=== PATIENT | female | born 1960 | race Caucasian/White ===

== ENCOUNTER 2021-04-02 18:51 | Emergency (ER) | payer OTHER ==
[~2021-04-02] VITALS: Ht 172.7 cm; Wt 136.1 kg
[~2021-04-02 18:51] MED LIST: CEPHALEXIN 500500 M2 PO; PROZAC 10 MG CA10 M1; ULTRAM 50MG TAB50 MG PO
[2021-04-02] MEDS ORDERED: MEDROLDOSEPACK PO (19:42)
[2021-04-02] MEDS ORDERED: PROAIR HFA8.5 GM INH (19:42)
[2021-04-02] MEDS ORDERED: ZPAK PO (19:42)
[2021-04-02 20:00] VITALS: BP 167/70
== END 2021-04-02 20:00 | disposition home or self-care (01) ==
LOC: M.ERS 18:51
DX: J22 Unspecified acute lower respiratory infection (principal); Z90.89 Acquired absence of other organs

== ENCOUNTER 2021-09-24 18:10 | Inpatient (IN) | payer OTHER ==
[~2021-09-24] VITALS: Ht 172.7 cm; Wt 142.9 kg
[~2021-09-24 18:10] MED LIST changes: +MEDROLDOSEPACK PO; +PROAIR HFA8.5 GM INH; +ZPAK PO
[2021-09-24 18:19] VITALS: BP 145/87
[2021-09-24 18:51] LABS: ABSOLUTE LYMPHOCYTES 0.5 thou/uL (0.8-5.3); ABSOLUTE MONOCYTES 0.8 thou/uL (0.0-1.2); ABSOLUTE NEUTROPHILS 5.6 thou/uL (1.6-8.1); BASOPHILS 0.4 %; EOSINOPHILS 0.2 %; HEMATOCRIT 49.1 % (37.0-47.0); LYMPHOCYTES 7.9 %; MCH 30.4 pg (26.0-34.0); MCHC 34.6 g/dL (28.0-37.0); MONOCYTES 11.7 %; MPV 8.4 fl. (7.2-11.1); NUCLEATED RBCS 0 /100WBC; PLATELET COUNT* 203 thou/uL (150-400); POLYS 79.8 %; RBC 5.58 mil/uL (4.20-5.00)
[2021-09-24 18:58] LABS: CALCIUM 8.6 mg/dL (8.5-10.1); CREATININE 1.3 mg/dL (0.6-1.3)
[2021-09-24 19:00] LABS: APTT 27.6 Seconds (25.0-31.3); INR 1.1; POTASSIUM 3.9 mmol/L (3.5-5.1); PROTIME 11.1 Seconds (9.20-11.50)
[2021-09-24 19:09] LABS: ALBUMIN 3.1 g/dL (3.4-5.0); TOTAL BILIRUBIN 2.1 mg/dL (<0.1-1.0); TOTAL PROTEIN 7.7 g/dL (6.4-8.2)
[2021-09-24 19:42] LABS: BE 0.2 mmol/L (-2 to +3); PCO2 30.2 mmHg (35.0-45.0); pH 7.486 (7.340-7.450)
[2021-09-24 20:21] LABS: INFLUENZA A ANTIGEN Negative (Negative); INFLUENZA B ANTIGEN Negative (Negative)
[2021-09-24 23:46] VITALS: BP 135/65
[2021-09-25 03:45] VITALS: BP 102/66
[2021-09-25 07:45] VITALS: BP 115/91
--- NOTE | 2021-09-25 11:16 | EKG ---
[place] [address] ELECTROCARDIOGRAM REPORT Name: JESSIKA CHUNG Room: [place] [address] ADM IN [facility]#: [id number] Admission: 09/24/21 Attend Phys: Vida Barker Discharge: Date of : 56 Date of Service: 09/24/21 1839 Report #: [id number] THIS REPORT FOR: //name// [facility] ED Test Date: 2021-09-24 Test Time: 18:39:33 Pat Name: JESSIKA WILLOUGHBYVALENTINA Department: Room: [facility] Gender: F Supervisor Finish End: ELKIN : 1960 Requested By: Perry Roach Order Number: [id number] MD: Lux Bush Measurements Intervals Weikert Rate: 96 P: -81 GA: 122 QRS: -20 QRSD: 101 T: -27 QT: 455 QTc: 576 Interpretive Statements Sinus or ectopic atrial rhythm nonspecific t wave changes Prolonged QT interval Baseline wander in lead(s) II,III,aVF,V1,V2 Compared to ECG 03/09/2012 13:10:02 Ectopic atrial rhythm now present Prolonged QT interval now present Electronically Signed On 09-25-2021 11:16:46 [employer] by Lux Bush [email or web address] <ELECTRONICALLY SIGNED> By: Lux Bush MD, [facility] 09/25/21 [phone] Lux Bush MD, [facility] /EPI
[2021-09-25 12:00] VITALS: BP 115/71
[2021-09-25 13:41] LABS: HEMATOCRIT 39.8 % (37.0-47.0); MCH 30.1 pg (26.0-34.0); MCHC 31.6 g/dL (28.0-37.0); MPV 7.5 fl. (7.2-11.1); NUCLEATED RBCS 0 /100WBC; PLATELET COUNT* 215 thou/uL (150-400); RBC 4.19 mil/uL (4.20-5.00); RDW-CV 13.4 % (10.5-14.5); WBC 7.5 thou/uL (4.0-11.0)
[2021-09-25 13:45] LABS: HEMOGLOBIN 12.6 gm/dL (12.0-15.0); MCV 95.2 fL (80.0-100.0)
[2021-09-25 13:52] LABS: APTT 26.7 Seconds (25.0-31.3); INR 1.1; PROTIME 11.5 Seconds (9.20-11.50)
[2021-09-25 13:53] LABS: ALBUMIN 2.2 g/dL (3.4-5.0); CALCIUM 6.7 mg/dL (8.5-10.1); CREATININE 1.4 mg/dL (0.6-1.3); TOTAL BILIRUBIN 0.4 mg/dL (<0.1-1.0); TOTAL PROTEIN 4.6 g/dL (6.4-8.2)
[2021-09-25 13:56] LABS: ABSOLUTE LYMPHOCYTES 4.7 thou/uL (0.8-5.3); ABSOLUTE MONOCYTES 0.2 thou/uL (0.0-1.2); ABSOLUTE NEUTROPHILS 2.6 thou/uL (1.6-8.1); PLATELET ESTIMATE ADEQUATE
[2021-09-25 14:01] LABS: POTASSIUM 2.6 mmol/L (3.5-5.1)
[2021-09-25 16:00] VITALS: BP 113/78
[2021-09-25 19:30] VITALS: BP 135/78
[2021-09-25 23:59] VITALS: BP 111/62
[2021-09-26 04:00] VITALS: BP 103/48
[2021-09-26 05:37] LABS: ABSOLUTE LYMPHOCYTES 0.4 thou/uL (0.8-5.3); ABSOLUTE NEUTROPHILS 10.4 thou/uL (1.6-8.1); HEMOGLOBIN 13.2 gm/dL (12.0-15.0); NUCLEATED RBCS 0 /100WBC; PLATELET COUNT* 207 thou/uL (150-400); RBC 4.39 mil/uL (4.20-5.00)
[2021-09-26 05:41] LABS: ABSOLUTE MONOCYTES 1.2 thou/uL (0.0-1.2); BASOPHILS 0.1 %; HEMATOCRIT 39.5 % (37.0-47.0); LYMPHOCYTES 3.5 %; MCH 30.1 pg (26.0-34.0); MCHC 33.4 g/dL (28.0-37.0); MONOCYTES 10.1 %; MPV 8.3 fl. (7.2-11.1); POLYS 86.3 %; WBC 12.1 thou/uL (4.0-11.0)
[2021-09-26 05:54] LABS: CALCIUM 7.8 mg/dL (8.5-10.1); CREATININE 1.1 mg/dL (0.6-1.3); POTASSIUM 3.7 mmol/L (3.5-5.1)
[2021-09-26 09:00] VITALS: BP 118/69; BP 18/69
[2021-09-26 12:00] VITALS: BP 107/62
[2021-09-26 16:00] VITALS: BP 138/83
[2021-09-26 20:00] VITALS: BP 108/78
[2021-09-27] VITALS: BP 121/74
[2021-09-27 04:00] VITALS: BP 103/53
[2021-09-27 06:04] LABS: ALKALINE PHOSPHATASE 93 U/L (46-116); ANION GAP 7 mmol/L (7-16); BUN 16 mg/dL (7-18); CHLORIDE 104 mmol/L (98-107); CHOLESTEROL 102 mg/dL (<200); CO2 27 mmol/L (21-32); CREATININE 1.3 mg/dL (0.6-1.3); GLUCOSE 108 mg/dL (70-99); HDL CHOLESTEROL 31 mg/dL (>40); LDL CHOLESTEROL 51 mg/dL (<100); POTASSIUM 3.6 mmol/L (3.5-5.1); SGOT 22 U/L (15-37); SGPT 18 U/L (30-65); SODIUM 138 mmol/L (136-145); TC:HDL 3.3 Ratio (Not establshd); TOTAL BILIRUBIN 1.4 mg/dL (<0.1-1.0); TOTAL PROTEIN 5.8 g/dL (6.4-8.2); TRIGLYCERIDE 101 mg/dL (<150); VLDL 20 mg/dL (<40)
[2021-09-27 06:23] LABS: SERUM ASSESSMENT CLEAR
[2021-09-27 08:00] VITALS: BP 121/73
--- NOTE | 2021-09-27 10:24 | CON ---
[address] [address] CONSULTATION Name: JESSIKA CHUNG Room: [address] IN [place]#: [id number] Admission: 09/24/21 Attend Phys: Marquez Turner Discharge: Date of : 56 Report #: [id number] THIS REPORT FOR: cc: FAM - No family physician/PCP FAM - No family physician/PCP Lux Bush MD [facility] ~ DATE OF CONSULTATION: 09/25/2021 CARDIOLOGY CONSULTATION HISTORY OF PRESENT ILLNESS: The patient is a 61-year-old single white female who I was asked to see in the hospital today after she complained to being short of breath. History is obtained from the patient. There are no family members available. The patient denies previous history of heart disease. She came to the Emergency Room this morning complaining of shortness of breath. She has been weak. She has been short of breath and coughing. She has noted some lower extremity edema. She has had a fever. Family members brought to the hospital. CT scan of the chest showed a saddle embolus. Cardiology consultation requested. She does note occasional sharp chest pain. It is not related to exertion. She has had no bleeding. PAST MEDICAL HISTORY: She has had a cholecystectomy. No history of hypertension, diabetes. CURRENT MEDICATIONS: She is on no medication. ALLERGIES: He has no known drug allergies. FAMILY HISTORY: Negative for heart disease. SOCIAL HISTORY: She has been twice. She lives by herself in [place]. She has no smoking, alcohol abuse. REVIEW OF SYSTEMS: She is 5 feet 8 inches, 300 pounds. No history of stroke, asthma. She does snore at night. No liver disease, no kidney disease, no cancer. No chronic skin condition. No psychiatric illness. PHYSICAL EXAMINATION: GENERAL: Revealed a large, obese female lying in bed. She appeared in no distress. VITAL SIGNS: She had a blood pressure of 120/60, pulse is 90. She is afebrile. HEENT: She was anicteric. Conjunctivae pink. Mucosa moist. NECK: Veins difficult to assess due to obesity. CHEST: Clear to auscultation. HEART: Regular rate and [place] [address] CONSULTATION Name: JESSIKA CHUNG Aubrey Room: [address]#: [id number] Admission: 09/24/21 Attend Phys: Marquez Turner Discharge: Date of : 56 Report #: [id number] ABDOMEN: Obese. EXTREMITIES: Had no pitting edema. Dorsalis pedis pulse 1+ bilaterally. SKIN: Cool and dry. NEUROLOGIC: Nonfocal. LABORATORY DATA: Her ECG shows a sinus rhythm with nonspecific T-wave changes. Her workup in the Emergency Room, she had a portable chest x-ray that showed cardiomegaly, bilateral infiltrates, low lung volumes. CT scan of the chest using a PE protocol showed bilateral pulmonary emboli, bilateral infiltrates. LABORATORY WORK: Potassium 2.6, creatinine 1.4, glucose 411, SGOT 273, SGPT 367. Albumin 2.2. High sensitivity troponin 1392. BNP 2438, hemoglobin 12.6. Her COVID antigen stat test was negative. IMPRESSION AND RECOMMENDATIONS: 1. Bilateral pulmonary emboli. Recommend venous duplex scan. Recommend anticoagulation. 2. Morbid obesity. 3. Snoring at night. Access sleep apnea. 4. Elevated liver function studies. Possible right sided heart failure. 5. Hypokalemia. Recommend potassium replacement. 6. Chronic kidney disease. 7. Non-ST elevation myocardial infarction. No history of angina. Possibly related to COVID. <ELECTRONICALLY SIGNED> By: Lux Bush MD, FACC 09/27/21 [id number] 1901Dcleopatra Bush MD, FACC /nt
[2021-09-27 12:00] VITALS: BP 84/50
[2021-09-27 15:43] VITALS: BP 101/64
[2021-09-27 20:00] VITALS: BP 113/71
[2021-09-28] VITALS: BP 124/75
[2021-09-28 03:33] LABS: ABSOLUTE LYMPHOCYTES 0.5 thou/uL (0.8-5.3); ABSOLUTE MONOCYTES 0.9 thou/uL (0.0-1.2); ABSOLUTE NEUTROPHILS 9.9 thou/uL (1.6-8.1); BASOPHILS 0.1 %; HEMATOCRIT 34.1 % (37.0-47.0); HEMOGLOBIN 11.2 gm/dL (12.0-15.0); LYMPHOCYTES 4.4 %; MCH 29.3 pg (26.0-34.0); MCHC 32.8 g/dL (28.0-37.0); MCV 89.4 fL (80.0-100.0); MONOCYTES 7.9 %; MPV 8.5 fl. (7.2-11.1); NUCLEATED RBCS 0 /100WBC; PLATELET COUNT* 304 thou/uL (150-400); POLYS 87.6 %; RBC 3.82 mil/uL (4.20-5.00); RDW-CV 13.4 % (10.5-14.5); WBC 11.3 thou/uL (4.0-11.0)
[2021-09-28 04:00] VITALS: BP 112/72
[2021-09-28 07:50] LABS: URINE BILIRUBIN NEGATIVE (Negative); URINE BLOOD NEGATIVE (Negative); URINE CLARITY CLEAR; URINE COLOR YELLOW; URINE GLUCOSE-RANDOM NEGATIVE (Negative); URINE KETONES NEGATIVE (Negative); URINE LEUKOCYTES NEGATIVE (Negative); URINE NITRITE NEGATIVE (Negative); URINE PROTEIN NEGATIVE (Negative); URINE SPECIFIC GRAVITY <= 1.005 (1.005-1.030); URINE UROBILINOGEN 0.2 E.U./dl (0.2-1.0)
[2021-09-28 08:00] VITALS: BP 109/63
[2021-09-28 12:19] VITALS: BP 117/57
--- NOTE | 2021-09-28 12:49 | 2DMMODE ---
[place] [address] 2 D/M-MODE ECHOCARDIOGRAM Name: JESSIKA CHUNG Room: [address] ADM IN [place]#: [id number] Admission: 09/24/21 Attend Phys: Vida Barker Discharge: Date of : 56 Date of Service: 09/28/21 1249 Report #: [id number] THIS REPORT FOR: cc: FAM - No family physician/PCP FAM - No family physician/PCP Bakari Wade MD [facility] ~ APPROVED REPORT Study performed: 09/28/2021 10:05:09 EXAM: Comprehensive 2D, Doppler, and color-flow Echocardiogram Patient Location: In-Patient Room #: [facility] Status: routine BSA: 2.48 HR: 68 bpm BP: 109/63 mmHg Rhythm: NSR Other Information Study Quality: Good Indications Acute TN 2D Dimensions IVSd: 11.28 (7-11mm) LVOT Diam: 22.18 (18-24mm) LVDd: 39.46 mm PWd: 10.20 (7-11mm) Ascending Ao: 36.77 (22-36mm) LVDs: 24.38 (25-40mm) Aortic Root: 35.80 mm Volumes Left Atrial Volume (Systole) LA ESV Index: 26.70 mL/m2 Aortic Valve AoV Peak Demetris.: 1.19 m/s AO Peak Gr.: 5.62 mmHg LVOT Max P.39 mmHg AO Mean Gr.: 2.89 mmHg LVOT Mean P.88 mmHg LVOT Max V: 1.05 m/s AO V2 VTI: 21.58 cm LVOT Mean V: 0.61 m/s SHELDON (VTI): 3.82 cm2 LVOT V1 VTI: 21.33 [place] [address] 2 D/M-MODE ECHOCARDIOGRAM Name: JESSIKA CHUNG Room: [address]#: [id number] Admission: 09/24/21 Attend Phys: Vida Barker Discharge: Date of : 56 Date of Service: 09/28/21 1249 Report #: [id number] Mitral Valve E/A Ratio: 1.02 MV Decel. Time: 218.78 ms MV E Max Demetris.: 0.75 m/s MV PHT: 63.45 ms MVA (PHT): 3.47 cm2 TDI E/Lateral E': 5.36 E/Medial E': 7.50 Medial E' Demetris.: 0.10 m/s Lateral E' Demetris.: 0.14 m/s Pulmonary Valve PV Peak Demetris.: 1.21 m/s PV Peak Gr.: 5.89 mmHg Tricuspid Valve RAP Estimate: 5.00 mmHg TR Peak Gr.: 21.80 mmHg RVSP: 26.00 mmHg PA Pressure: 26.00 mmHg Left Ventricle The left ventricle is normal size. There is normal LV segmental wall motion. There is normal left ventricular wall thickness. Left ventricular systolic function is normal. The left ventricular ejection fraction is within the normal range. LVEF is 60%. The left ventricular diastolic function is normal. Right Ventricle The right ventricle is normal size. The right ventricular systolic function is normal. Atria The left atrium size is normal. The right atrium size is normal. Aortic Valve The aortic valve is normal in structure. No aortic regurgitation is present. There is no aortic valvular stenosis. Mitral Valve The mitral valve is normal in structure. Trace mitral regurgitation. No evidence of mitral valve stenosis. Tricuspid Valve The tricuspid valve is normal in structure. Trace tricuspid regurgitation. [place] [address] 2 D/M-MODE ECHOCARDIOGRAM Name: JESSIKA CHUNG Room: [address]#: [id number] Admission: 09/24/21 Attend Phys: Vida Barker Discharge: Date of : 56 Date of Service: 09/28/21 1249 Report #: [id number] Pulmonic Valve The pulmonary valve is normal in structure. There is no pulmonic valvular regurgitation. Great Vessels The aortic root is normal in size. IVC is not well visualized. Pericardium There is no pericardial effusion. <Conclusion> The left ventricle is normal size. There is normal left ventricular wall thickness. Left ventricular systolic function is normal. The left ventricular ejection fraction is within the normal range. LVEF is 60%. The right ventricle is normal size. The left atrium size is normal. The aortic valve is normal in structure. The mitral valve is normal in structure. Trace mitral regurgitation. There is no pericardial effusion. There is normal LV segmental wall motion. <ELECTRONICALLY SIGNED> By: Bakari Wade MD, FACC 09/28/21 1249 1249 1249 Bakari Wade MD, FACC /INF
[2021-09-28] MEDS ORDERED: VITAMIN D325 MC2 PO (13:24)
[2021-09-28] MEDS ORDERED: XARELTO1 EACH PO (13:24)
[2021-09-28 13:35] VITALS: BP 117/57
== END 2021-09-28 15:20 | disposition home or self-care (01) | DRG 163 ==
LOC: M.ERS 18:10 → M.TBA-ER 19:04 → M.ORTHSURG 09-25 22:12
PROVIDERS: Emergency Medicine; Internal Medicine Cardiovascular Disease; Internal Medicine Critical Care Medicine; Radiology Diagnostic Radiology; ADMIT Internal Medicine; ATTEND Internal Medicine
PROC: B31T1ZZ Fluoroscopy of Left Pulmonary Artery using Low Osmolar Contrast (ICD-10-PCS; principal; 2021-09-25)
PROC: B31S1ZZ Fluoroscopy of Right Pulmonary Artery using Low Osmolar Contrast (ICD-10-PCS; principal; 2021-09-25)
PROC: 05HY33Z Insertion of Infusion Device into Upper Vein, Percutaneous Approach (ICD-10-PCS; principal; 2021-09-25)
PROC: 02CQ3ZZ Extirpation of Matter from Right Pulmonary Artery, Percutaneous Approach (ICD-10-PCS; principal; 2021-09-25)
DX: U07.1 COVID-19 (principal); J96.01 Acute respiratory failure with hypoxia; J12.82 Pneumonia due to coronavirus disease 2019; I21.A1 Myocardial infarction type 2; Z68.42 Body mass index [BMI] 45.0-49.9, adult; E66.01 Morbid (severe) obesity due to excess calories; E11.22 Type 2 diabetes mellitus with diabetic chronic kidney disease; I12.9 Hypertensive chronic kidney disease with stage 1 through stage 4 chronic kidney disease, or unspecified chronic kidney disease; N18.9 Chronic kidney disease, unspecified; E87.6 Hypokalemia; D75.1 Secondary polycythemia; Z28.21 Immunization not carried out because of patient refusal; Z90.49 Acquired absence of other specified parts of digestive tract